=== PATIENT | male | born 2000 | race Caucasian/White ===

== ENCOUNTER 2019-09-23 20:20 | Emergency (ER) | payer MEDICAID ==
[~2019-09-23] VITALS: Ht 175.3 cm; Wt 74.1 kg
--- NOTE | 2019-09-23 23:22 | NUR ---
pt to room from lobby
--- NOTE | 2019-09-23 23:35 | NUR ---
PT C/O N/V/D X5 DAYS ALONG WITH COUGH AND LOST VOICE. PT REPORTS NO CURRENT COUGH, LAST N/V/D LAST NIGHT. REPORTS SORE THROAT WITHOUT ITCHINESS. PT CONNECTED TO MONITORING, ALL SAFETY MEASURES IN PLACE, CALL LIGHT WITHIN REACH. MOTHER AT BS FOR SUPPORT.
[2019-09-23 23:37] VITALS: BP 136/89
[2019-09-24] MEDS ORDERED: DEXAMETHASONE 4 MG/ML, 1ML ONE (00:07)
[2019-09-24] MEDS ORDERED: DEXAMETHASONE 4 MG/ML, 1ML PO ONE (00:30)
== END 2019-09-24 ==
LOC: ED 09-24 00:33
DX: J04.0 Acute laryngitis (principal); J01.00 Acute maxillary sinusitis, unspecified; B34.9 Viral infection, unspecified; F17.200 Nicotine dependence, unspecified, uncomplicated
CPT/HCPCS: 71046; J1100; 99283